=== PATIENT | male | born 1935 | race Caucasian/White ===

== ENCOUNTER 2016-05-05 10:40 | Inpatient (IN) | payer OTHER, MEDICAID ==
[~2016-05-05] VITALS: Ht 172.7 cm; Wt 90.7 kg
[2016-05-05] MEDS ORDERED: SODIUM CHLORIDE 0.9% 500 ML IVB ONE (11:59)
[2016-05-05 12:04] LABS: Hematocrit 42.9 % (41.0-53.0); Hemoglobin 14.3 g/dL (13.5-17.5); Mean Corpuscular Hemoglobin 29.7 pg (28.0-32.0); Mean Corpuscular Hgb Conc. 33.4 g/dL (32.0-36.0); Mean Corpuscular Volume 88.9 fL (80.0-100.0); Mean Platelet Volume 10.4 fL (7.4-10.4); Platelet Count (auto) 458 10^3/uL (140-450); Red Cell Distribution Width 16.9 % (11.6-16.0)
[2016-05-05 12:10] LABS: White Blood Cell 48.3 10^3/uL (4.4-10.8)
[2016-05-05 12:11] LABS: Metamyelocytes % 0; Myelocytes % 0; Promyelocytes % 0; Reactive Lymphocytes 0
[2016-05-05 12:21] LABS: Platelet Estimate Increased; RBC Morphology Normal
[2016-05-05 12:23] LABS: Albumin 2.6 g/dL (3.4-5.0); BUN/Creatinine Ratio 17.8; Calcium 9.9 mg/dL (8.5-10.1)
[2016-05-05 12:34] LABS: Partial Thromboplastin Time 42.9 sec (22.64-33.71)
[2016-05-05 12:36] LABS: INR 1.85 (0.9-1.15); Prothrombin Time 19.1 sec (9.37-12.3)
[2016-05-05 12:42] LABS: Potassium 2.9 mmol/L (3.5-5.1); Total Protein 6.6 g/dL (6.4-8.2)
[2016-05-05 13:08] LABS: Lactic Acid 5.9 mmol/L (0.4-2.0)
[2016-05-05] MEDS ORDERED: cefTRIAXone 1GM/50ML D5W 50 ML IV ONE ×2 (13:15→13:39)
[2016-05-05] MEDS: POTASSIUM CHL 20MEQ/100ML 100 ML IV SCH ×3 (13:15→17:15)
[2016-05-05] MEDS: SODIUM CHLORIDE 0.9% 1,000 ML IV SCH (13:30)
[2016-05-05] MEDS: NOREPINEPHRINE BITARTRATE 250 ML IV SCH ×2 (13:30→22:50)
[2016-05-05] MEDS ORDERED: PIPERACILLIN-TAZOB 3.375GM 100 ML IV ONE (13:30)
[2016-05-05] MEDS ORDERED: NITROGLYCERIN 0.4 MG SL TAB SL PRN (13:30)
[2016-05-05] MEDS ORDERED: MORPHINE SULF INJ 2 MG/ML SYRINGE 1ML IV PRN (13:30)
[2016-05-05] MEDS ORDERED: SODIUM CHLORIDE 0.9% 2,000 ML IV ONE (13:30)
[2016-05-05] MEDS ORDERED: VANCOMYCIN PER PHARMACY 0 MG IV SCH (13:30)
[2016-05-05 13:43] LABS: REFLEX LACTIC ACID YES OR NO YES
[2016-05-05 14:48] LABS: Lactic Acid 4.1 mmol/L (0.4-2.0)
[2016-05-05 14:49] LABS: REFLEX LACTIC ACID YES OR NO NO
[2016-05-05] MEDS ORDERED: VANCOMYCIN 1,250 MG in D5W 5% 250 ML IV ONE (15:00)
[2016-05-05] MEDS: PIPERACILLIN-TAZOB 3.375GM 100 ML IV SCH (20:00)
[2016-05-06] MEDS: SODIUM CHLORIDE 0.9% 1,000 ML IV SCH ×3 (01:03→16:00)
[2016-05-06] MEDS: PIPERACILLIN-TAZOB 3.375GM 100 ML IV SCH ×4 (02:43→19:55)
[2016-05-06 03:59] LABS: Hematocrit 38.8 % (41.0-53.0); Hemoglobin 13.1 g/dL (13.5-17.5); Mean Corpuscular Hemoglobin 30.3 pg (28.0-32.0); Mean Corpuscular Hgb Conc. 33.7 g/dL (32.0-36.0); Mean Corpuscular Volume 89.8 fL (80.0-100.0); Mean Platelet Volume 10.7 fL (7.4-10.4); Platelet Count (auto) 437 10^3/uL (140-450); Red Cell Distribution Width 16.5 % (11.6-16.0)
[2016-05-06 04:15] LABS: Albumin 2.2 g/dL (3.4-5.0); BUN/Creatinine Ratio 17.2; Calcium 8.5 mg/dL (8.5-10.1); Potassium 3.2 mmol/L (3.5-5.1)
[2016-05-06 04:28] LABS: Bilirubin, Total 24.2 mg/dL (0.2-1.0)
[2016-05-06 04:29] LABS: White Blood Cell 42.3 10^3/uL (4.4-10.8)
[2016-05-06 04:30] LABS: Metamyelocytes % 0; Myelocytes % 0; Promyelocytes % 0; Reactive Lymphocytes 0
[2016-05-06 05:15] LABS: Platelet Estimate Adequate
[2016-05-06] MEDS ORDERED: LORazepam 2MG/ML-1ML VIAL ONE ×2 (06:02→20:29)
[2016-05-06] MEDS ORDERED: LORazepam 2MG/ML-1ML VIAL IV ONE (06:30)
[2016-05-06 08:55] LABS: Urine Color Brown (Yellow); Urine Glucose TRACE mg/dL (Normal); Urine Ketone Negative (Negative); Urine Nitrite Negative (Negative); Urine RBC 1 /hpf (0 - 3); Urine Squamous Epithelial Cell FEW /hpf (<5); Urine Urobilinogen Normal (Negative); Urine pH 5.5 (5.0-8.0)
[2016-05-06] MEDS ORDERED: POTASSIUM CHL 20MEQ/100ML 100 ML IV ONE ×2 (08:55→09:00)
[2016-05-06 08:58] LABS: Urine Bilirubin 4+ (Negative); Urine Blood 2+ /uL (Negative)
[2016-05-06] MEDS ORDERED: PIPERACILLIN-TAZOB 3.375GM 100 ML IV ONE ×3 (09:01→19:44)
[2016-05-06] MEDS ORDERED: HYDR-2651 PO (12:11)
[2016-05-06] MEDS ORDERED: HCTZ25T PO (12:11)
[2016-05-06] MEDS ORDERED: ENAL20TA70 PO (12:11)
[2016-05-06] MEDS ORDERED: CHOL100040 PO (12:11)
[2016-05-06] MEDS ORDERED: AMLO5TAB2 PO (12:11)
[2016-05-06] MEDS ORDERED: METO-291 PO (12:11)
[2016-05-06] MEDS ORDERED: DOCU250C3 PO (12:11)
[2016-05-06] MEDS ORDERED: PRAV20TA3 PO (12:11)
[2016-05-06] MEDS ORDERED: METF-312 PO (12:11)
[2016-05-06] MEDS ORDERED: ASPI81CH49 PO (12:11)
[2016-05-06] MEDS ORDERED: IBUP-781 PO (12:11)
[2016-05-06] MEDS ORDERED: VANCOMYCIN 1GM/250ML D5W 250 ML IV ONE (15:00)
[2016-05-06] MEDS ORDERED: NOREPINEPHRINE BITARTRATE 250 ML IV ONE (17:57)
[2016-05-06] MEDS: NOREPINEPHRINE BITARTRATE 250 ML IV SCH (17:57)
[2016-05-06] MEDS: LORazepam 2MG/ML-1ML VIAL IV PRN (20:30)
[2016-05-07] VITALS (10 sets, daily range): BP systolic 56–180; BP diastolic 19–90
[2016-05-07] MEDS: PIPERACILLIN-TAZOB 3.375GM 100 ML IV SCH (02:00)
[2016-05-07] MEDS ORDERED: PIPERACILLIN-TAZOB 3.375GM 100 ML IV ONE (02:06)
[2016-05-07] MEDS: SODIUM CHLORIDE 0.9% 1,000 ML IV SCH ×2 (02:50→09:30)
[2016-05-07] MEDS ORDERED: NOREPINEPHRINE BITARTRATE 250 ML IV ONE ×2 (04:16→11:08)
[2016-05-07] MEDS: NOREPINEPHRINE BITARTRATE 250 ML IV SCH (04:40)
[2016-05-07 06:23] LABS: Hematocrit 30.3 % (41.0-53.0); Hemoglobin 10.3 g/dL (13.5-17.5); Mean Corpuscular Hemoglobin 30.9 pg (28.0-32.0); Mean Corpuscular Hgb Conc. 34.1 g/dL (32.0-36.0); Mean Corpuscular Volume 90.7 fL (80.0-100.0); Mean Platelet Volume 9.5 fL (7.4-10.4); Platelet Count (auto) 420 10^3/uL (140-450); Red Cell Distribution Width 15.6 % (11.6-16.0)
[2016-05-07 06:27] LABS: White Blood Cell 34.8 10^3/uL (4.4-10.8)
[2016-05-07 06:28] LABS: Metamyelocytes % 0; Myelocytes % 0; Promyelocytes % 0; Reactive Lymphocytes 0
[2016-05-07 06:36] LABS: Albumin 1.6 g/dL (3.4-5.0); BUN/Creatinine Ratio 18.3; Calcium 7.7 mg/dL (8.5-10.1); Potassium 3.6 mmol/L (3.5-5.1)
[2016-05-07 06:38] LABS: Bilirubin, Total 20.7 mg/dL (0.2-1.0); Total Protein 4.8 g/dL (6.4-8.2)
[2016-05-07] MEDS: LORazepam 2MG/ML-1ML VIAL IV PRN ×2 (06:53→13:16)
[2016-05-07 08:17] LABS: Platelet Estimate Adequate; RBC Morphology Normal
[2016-05-07] MEDS ORDERED: PIPERACILLIN-TAZOB 2.25GM 50 ML IV SCH ×2 (10:00→14:00)
[2016-05-07] MEDS ORDERED: PHENYLEPHRINE IV 250 ML IV ONE (10:02)
[2016-05-07 10:16] LABS: Urine Color Brown (Yellow); Urine Glucose TRACE mg/dL (Normal); Urine Ketone Negative (Negative); Urine Nitrite Negative (Negative); Urine Urobilinogen Normal (Negative)
[2016-05-07 10:35] LABS: Urine RBC 59794 /hpf (0 - 3)
[2016-05-07 10:39] LABS: Urine Bilirubin 4+ (Negative); Urine Blood 3+ /uL (Negative)
[2016-05-07] MEDS ORDERED: DEXTROSE (50%) 50ML SYRG IV PRN (11:00)
[2016-05-07] MEDS: PHENYLEPHRINE INJ 20 MG in SODIUM CHL 0.9% 250 ML IV SCH (11:06)
[2016-05-07] MEDS ORDERED: InsuLIN REG 1unit/0.01ml Soln (100units/ml) SC SCH (12:00)
[2016-05-07] MEDS ORDERED: ACCU-CHEK COMFORT CURVE STRIP VI SCH (12:00)
== END 2016-05-07 14:22 | disposition expired | DRG 871 ==
LOC: EDUNIT# 10:40 → EDBD 10:40 → ER 10:47 → UNDOADMIN 10:48 → TELE 10:48 → ICU WEST 05-07 09:32
PROVIDERS: ADMIT Internal Medicine; ATTEND Internal Medicine
DX: A41.9 Sepsis, unspecified organism (principal); K83.1 Obstruction of bile duct; N17.0 Acute kidney failure with tubular necrosis; K81.0 Acute cholecystitis; I12.9 Hypertensive chronic kidney disease with stage 1 through stage 4 chronic kidney disease, or unspecified chronic kidney disease; N18.9 Chronic kidney disease, unspecified; K82.8 Other specified diseases of gallbladder; I70.0 Atherosclerosis of aorta; E87.6 Hypokalemia; E86.0 Dehydration; E11.22 Type 2 diabetes mellitus with diabetic chronic kidney disease; M19.90 Unspecified osteoarthritis, unspecified site; Z66 Do not resuscitate; Z51.5 Encounter for palliative care
CPT/HCPCS: 36415; 51702; 71010; 74176; 80053; 80202; 81001; 82150; 83605; 83690; 83735; 84484; 85007; 85027; 85049; 85610; 85730; 87040; 87081; 93005; 96361; 96365; 96375; 99291; J0696; J2543; J3480; J3490; J7060